=== PATIENT | female | born 1945 | race Caucasian/White ===

== ENCOUNTER 2019-04-13 13:28 | Inpatient (IN) | payer MEDICARE, MEDICAID ==
[2019-04-13] MEDS: SOD CHLORIDE 0.9% 1,000 ML IV (14:09)
[2019-04-13] MEDS: KETOROLAC 15 MG INJ IV (14:09)
[2019-04-13 14:11] LABS: ADD MAN DIFF? NO
[2019-04-13 14:14] LABS: ABNORMAL IP MESSAGE 1; BASOPHILS % 0.5 % (0.0-2.0); EOSINOPHILS # 0.1 10^3/ul (0.0-0.5); EOSINOPHILS % 1.3 % (0.0-7.0); HEMATOCRIT 29.4 % (37.0-47.0); HEMOGLOBIN 9.3 g/dl (12.0-16.0); LYMPHOCYTES # 0.9 10^3/ul (0.8-2.9); LYMPHOCYTES % 12.4 % (15.0-51.0); MEAN CORPUSCULAR HEMOGLOBIN 30.8 pg (29.0-33.0); MEAN CORPUSCULAR HGB CONC 31.6 g/dl (32.0-37.0); MEAN CORPUSCULAR VOLUME 97.4 fl (82.0-101.0); MEAN PLATELET VOLUME 10.3 fl (7.4-10.4); MONOCYTE # 0.7 10^3/ul (0.3-0.9); MONOCYTES % 9.6 % (0.0-11.0); NEUTROPHIL # 5.7 10^3/ul (1.6-7.5); NEUTROPHILS % 75.4 % (39.0-77.0); PLATELET COUNT 256 10^3/UL (140-415); RED BLOOD COUNT 3.02 10^6/ul (4.20-5.40); RED CELL DISTRIBUTION WIDTH 23.8 % (11.5-14.5)
[2019-04-13 14:14] LABS: WHITE BLOOD COUNT 7.5 10^3/ul (4.8-10.8)
[2019-04-13 14:16] LABS: POSITIVE DIFF @See below
[2019-04-13 14:32] LABS: ALANINE AMINOTRANSFERASE 29 IU/L (13-69); ALBUMIN 2.5 g/dl (3.3-4.9); ALKALINE PHOSPHATASE 393 IU/L (42-121); ANION GAP 10 (5-13); ASPARTATE AMINO TRANSFERASE 39 IU/L (15-46); BILIRUBIN,INDIRECT 0.4 mg/dl (0-1.1); BILIRUBIN,TOTAL 0.4 mg/dl (0.2-1.3); BLOOD UREA NITROGEN 36 mg/dl (7-20); CALCIUM 8.1 mg/dl (8.4-10.2); CARBON DIOXIDE 31 mmol/L (21-31); CHLORIDE 94 mmol/L (97-110); CREATININE 3.34 mg/dl (0.44-1.00); GLUCOSE 133 mg/dl (70-220); LIPASE 105 U/L (23-300); POTASSIUM 3.7 mmol/L (3.5-5.1); SODIUM 135 mmol/L (135-144)
[2019-04-13 14:33] LABS: PROTIME 19.1 Sec (11.9-14.9); PT RATIO 1.5
[2019-04-13 14:34] LABS: PARTIAL THROMBOPLASTIN TIME 50.1 Sec (23.0-35.0)
[2019-04-13 14:44] LABS: TROPONIN-I 0.031 ng/ml (0.000-0.120)
[2019-04-13] MEDS ORDERED: DOCUSATE SODIUM 100 MG CAP PO (17:30)
[2019-04-13] MEDS ORDERED: BISACODYL (EC) 5 MG TAB PO (17:30)
[2019-04-13] MEDS ORDERED: ONDANSETRON 4 MG INJ IV (17:30)
[2019-04-13] MEDS: IBUPROFEN 600 MG TAB PO (19:51)
[2019-04-13] MEDS: FAMOTIDINE 20 MG TAB PO (21:16)
[2019-04-13] MEDS: GABAPENTIN 100 MG CAP PO (21:16)
[2019-04-13] MEDS: MIDODRINE 5 MG TAB PO (21:17)
[2019-04-13 21:48] LABS: B-TYPE NATRIURETIC PEPTIDE 29600 PG/ML (0-125)
[2019-04-14] MEDS: HYDROCODONE/APAP (5/325) TAB PO ×3 (01:10→19:41)
[2019-04-14 01:55] LABS: TROPONIN-I 0.024 ng/ml (0.000-0.120)
[2019-04-14] MEDS: morphine 2 MG INJ IV (03:08)
[2019-04-14 05:14] LABS: ADD MAN DIFF? NO
[2019-04-14 05:20] LABS: ABNORMAL IP MESSAGE 1; BASOPHIL # 0.1 10^3/ul (0.0-0.1); BASOPHILS % 0.7 % (0.0-2.0); EOSINOPHILS # 0.1 10^3/ul (0.0-0.5); EOSINOPHILS % 2.1 % (0.0-7.0); HEMATOCRIT 26.5 % (37.0-47.0); HEMOGLOBIN 8.3 g/dl (12.0-16.0); LYMPHOCYTES % 14.2 % (15.0-51.0); MEAN CORPUSCULAR HEMOGLOBIN 30.3 pg (29.0-33.0); MEAN CORPUSCULAR HGB CONC 31.3 g/dl (32.0-37.0); MEAN CORPUSCULAR VOLUME 96.7 fl (82.0-101.0); MEAN PLATELET VOLUME 10.8 fl (7.4-10.4); MONOCYTE # 0.7 10^3/ul (0.3-0.9); MONOCYTES % 10.8 % (0.0-11.0); NEUTROPHIL # 4.8 10^3/ul (1.6-7.5); NEUTROPHILS % 71.3 % (39.0-77.0); PLATELET COUNT 252 10^3/UL (140-415); RED BLOOD COUNT 2.74 10^6/ul (4.20-5.40); RED CELL DISTRIBUTION WIDTH 23.7 % (11.5-14.5)
[2019-04-14 05:20] LABS: WHITE BLOOD COUNT 6.8 10^3/ul (4.8-10.8)
[2019-04-14 05:32] LABS: POSITIVE DIFF @See below
[2019-04-14 05:46] LABS: ALANINE AMINOTRANSFERASE 31 IU/L (13-69); ALBUMIN 1.8 g/dl (3.3-4.9); ALKALINE PHOSPHATASE 343 IU/L (42-121); ANION GAP 8 (5-13); ASPARTATE AMINO TRANSFERASE 33 IU/L (15-46); BILIRUBIN,INDIRECT 0.4 mg/dl (0-1.1); BILIRUBIN,TOTAL 0.4 mg/dl (0.2-1.3); BLOOD UREA NITROGEN 44 mg/dl (7-20); CALCIUM 7.8 mg/dl (8.4-10.2); CARBON DIOXIDE 29 mmol/L (21-31); CHLORIDE 100 mmol/L (97-110); CREATININE 3.95 mg/dl (0.44-1.00); GLUCOSE 111 mg/dl (70-220); POTASSIUM 4.6 mmol/L (3.5-5.1); SODIUM 137 mmol/L (135-144); TOTAL PROTEIN 3.8 g/dl (6.1-8.1)
[2019-04-14 05:56] LABS: TROPONIN-I 0.032 ng/ml (0.000-0.120)
[2019-04-14 06:03] LABS: FREE THYROXINE INDEX (Calc) 1.68 ug/ml (0.65-3.89); T3 UPTAKE 49.3 % (23.5-40.5); T4 (THYROXINE) 3.4 ug/dl (5.5-11.0)
[2019-04-14] MEDS: LEVOTHYROXINE 175 MCG TAB PO (06:41)
[2019-04-14 06:52] LABS: HEMOGLOBIN A1C 4.7 % (0-5.9)
[2019-04-14] MEDS: ASPIRIN 81 MG TAB PO (09:00)
[2019-04-14] MEDS: FAMOTIDINE 20 MG TAB PO ×2 (09:40→21:37)
[2019-04-14] MEDS: MIDODRINE 5 MG TAB PO ×3 (09:40→21:37)
[2019-04-14] MEDS: GABAPENTIN 100 MG CAP PO ×2 (09:40→21:37)
[2019-04-14 12:37] LABS: TROPONIN-I 0.021 ng/ml (0.000-0.120)
[2019-04-14] MEDS: SOD CHLORIDE 0.9% 250 ML IV* (14:40)
[2019-04-14 17:37] LABS: TROPONIN-I 0.019 ng/ml (0.000-0.120)
[2019-04-14] MEDS: ALBUMIN HUMAN 25% 100 ML IV ×2 (17:57→18:10)
[2019-04-14 18:07] LABS: HEPATITIS B SURFACE ANTIGEN NEGATIVE (NEGATIVE)
[2019-04-14 18:25] LABS: HEPATITIS B SURFACE ANTIBODY NEGATIVE (NEGATIVE)
[2019-04-14 20:10] LABS: IMMEDIATE SPIN CROSSMATCH 1 3
[2019-04-14] MEDS: HEPARIN 1000 UNITS/ML 10 ML INJ CATHETER (21:43)
[2019-04-14 22:29] LABS: ADD MAN DIFF? NO
[2019-04-14 22:31] LABS: WHITE BLOOD COUNT 5.6 10^3/ul (4.8-10.8)
[2019-04-14 22:31] LABS: ABNORMAL IP MESSAGE 1; BASOPHIL # 0.1 10^3/ul (0.0-0.1); BASOPHILS % 0.9 % (0.0-2.0); EOSINOPHILS # 0.1 10^3/ul (0.0-0.5); EOSINOPHILS % 1.3 % (0.0-7.0); HEMATOCRIT 36.3 % (37.0-47.0); HEMOGLOBIN 11.7 g/dl (12.0-16.0); LYMPHOCYTES # 0.4 10^3/ul (0.8-2.9); LYMPHOCYTES % 7.7 % (15.0-51.0); MEAN CORPUSCULAR HGB CONC 32.2 g/dl (32.0-37.0); MONOCYTE # 0.5 10^3/ul (0.3-0.9); MONOCYTES % 8.3 % (0.0-11.0); NEUTROPHIL # 4.5 10^3/ul (1.6-7.5); NEUTROPHILS % 81.1 % (39.0-77.0); PLATELET COUNT 200 10^3/UL (140-415); RED BLOOD COUNT 3.78 10^6/ul (4.20-5.40); RED CELL DISTRIBUTION WIDTH 21.5 % (11.5-14.5)
[2019-04-14 22:33] LABS: POSITIVE DIFF @See below
[2019-04-15 01:26] LABS: TROPONIN-I 0.043 ng/ml (0.000-0.120)
[2019-04-15 05:07] LABS: PLATELET COUNT 191 10^3/UL (140-415)
[2019-04-15 05:07] LABS: ADD MAN DIFF? NO
[2019-04-15 05:08] LABS: WHITE BLOOD COUNT 6.8 10^3/ul (4.8-10.8)
[2019-04-15 05:08] LABS: BASOPHIL # 0.1 10^3/ul (0.0-0.1); BASOPHILS % 0.7 % (0.0-2.0); EOSINOPHILS # 0.1 10^3/ul (0.0-0.5); EOSINOPHILS % 1.5 % (0.0-7.0); HEMATOCRIT 31.5 % (37.0-47.0); HEMOGLOBIN 10.1 g/dl (12.0-16.0); LYMPHOCYTES # 0.6 10^3/ul (0.8-2.9); LYMPHOCYTES % 8.9 % (15.0-51.0); MEAN CORPUSCULAR HEMOGLOBIN 30.8 pg (29.0-33.0); MEAN CORPUSCULAR HGB CONC 32.1 g/dl (32.0-37.0); MEAN PLATELET VOLUME 9.9 fl (7.4-10.4); MONOCYTE # 0.6 10^3/ul (0.3-0.9); MONOCYTES % 9.2 % (0.0-11.0); NEUTROPHIL # 5.3 10^3/ul (1.6-7.5); PLATELET COUNT 190 10^3/UL (140-415); RED BLOOD COUNT 3.28 10^6/ul (4.20-5.40); RED CELL DISTRIBUTION WIDTH 21.6 % (11.5-14.5)
[2019-04-15 05:50] LABS: INR 1.29; PROTIME 16.2 Sec (11.9-14.9); PT RATIO 1.3
[2019-04-15 05:51] LABS: PARTIAL THROMBOPLASTIN TIME 41.7 Sec (23.0-35.0); THROMBIN TIME 17.6 SEC (13.8-19.1)
[2019-04-15 05:58] LABS: TROPONIN-I 0.045 ng/ml (0.000-0.120)
[2019-04-15] MEDS: LEVOTHYROXINE 175 MCG TAB PO (07:00)
[2019-04-15] MEDS: MIDODRINE 5 MG TAB PO ×3 (08:20→22:08)
[2019-04-15] MEDS: HYDROCODONE/APAP (5/325) TAB PO ×3 (08:20→22:07)
[2019-04-15] MEDS: FAMOTIDINE 20 MG TAB PO ×2 (09:00→22:08)
[2019-04-15] MEDS: GABAPENTIN 100 MG CAP PO ×2 (09:00→22:08)
[2019-04-15] MEDS: ASPIRIN 81 MG TAB PO (09:00)
[2019-04-15 18:14] LABS: INR 1.37; PT RATIO 1.3
[2019-04-15 18:15] LABS: PARTIAL THROMBOPLASTIN TIME 37.7 Sec (23.0-35.0)
[2019-04-15] MEDS ORDERED: FENTAnyl 50 MCG/ML VIAL ×2 (18:31→19:55)
[2019-04-15] MEDS ORDERED: ETOMIDATE 20 MG INJ (18:31)
[2019-04-15] MEDS ORDERED: PHENYLephrine 10 MG INJ (18:31)
[2019-04-15] MEDS ORDERED: LIDOCAINE 2% (SDV) 5 ML INJ (18:41)
[2019-04-15] MEDS ORDERED: PROPOFOL 20 ML (18:51)
[2019-04-15] MEDS: NORepinephrine 8MG/250 ML (PMX 250 ML IV (19:00)
[2019-04-15] MEDS ORDERED: KETAMINE (50 MG/ML) 10 ML VIAL (19:35)
[2019-04-15] MEDS ORDERED: ONDANSETRON 4 MG INJ IV (21:00)
[2019-04-15] MEDS ORDERED: NALOXONE (0.4 MG/ML) INJ IV (21:00)
[2019-04-15] MEDS ORDERED: NACL 0.9% 3 ML SYG IV (21:00)
[2019-04-15] MEDS ORDERED: HYDROmorphONE 1 MG/5 ML IV SYRINGE IV (21:00)
[2019-04-15] MEDS ORDERED: FENTAnyl 50 MCG/ML VIAL IV (21:00)
[2019-04-15] MEDS: morphine 2 MG INJ IV (21:30)
[2019-04-15] MEDS: SOD CHLORIDE 0.9% 1,000 ML IV (22:08)
[2019-04-16] MEDS: morphine 2 MG INJ IV (00:10)
[2019-04-16 04:48] LABS: ADD MAN DIFF? NO
[2019-04-16 04:54] LABS: WHITE BLOOD COUNT 6.1 10^3/ul (4.8-10.8)
[2019-04-16 04:54] LABS: ABNORMAL IP MESSAGE 1; BASOPHIL # 0.1 10^3/ul (0.0-0.1); EOSINOPHILS # 0.1 10^3/ul (0.0-0.5); EOSINOPHILS % 1.3 % (0.0-7.0); HEMATOCRIT 35.1 % (37.0-47.0); HEMOGLOBIN 11.1 g/dl (12.0-16.0); LYMPHOCYTES # 0.8 10^3/ul (0.8-2.9); LYMPHOCYTES % 12.6 % (15.0-51.0); MEAN CORPUSCULAR HEMOGLOBIN 30.4 pg (29.0-33.0); MEAN CORPUSCULAR HGB CONC 31.6 g/dl (32.0-37.0); MEAN CORPUSCULAR VOLUME 96.2 fl (82.0-101.0); MEAN PLATELET VOLUME 10.5 fl (7.4-10.4); MONOCYTE # 0.7 10^3/ul (0.3-0.9); MONOCYTES % 10.7 % (0.0-11.0); NEUTROPHIL # 4.5 10^3/ul (1.6-7.5); NEUTROPHILS % 73.9 % (39.0-77.0); PLATELET COUNT 184 10^3/UL (140-415); RED BLOOD COUNT 3.65 10^6/ul (4.20-5.40); RED CELL DISTRIBUTION WIDTH 22.2 % (11.5-14.5)
[2019-04-16 05:09] LABS: ANION GAP 5 (5-13); BLOOD UREA NITROGEN 34 mg/dl (7-20); CALCIUM 7.9 mg/dl (8.4-10.2); CARBON DIOXIDE 28 mmol/L (21-31); CHLORIDE 107 mmol/L (97-110); CREATININE 3.04 mg/dl (0.44-1.00); GLUCOSE 111 mg/dl (70-220); PHOSPHORUS 5.2 mg/dl (2.5-4.9); POTASSIUM 4.4 mmol/L (3.5-5.1); SODIUM 140 mmol/L (135-144)
[2019-04-16 05:14] LABS: POSITIVE DIFF @See below
[2019-04-16] MEDS: LEVOTHYROXINE 125 MCG TAB PO (05:24)
[2019-04-16] MEDS: BALSAM PERU/CASTOR OIL 60 GM TUBE TOP ×3 (05:24→20:39)
[2019-04-16] MEDS: LEVOTHYROXINE 100 MCG TAB PO (05:24)
[2019-04-16] MEDS ORDERED: LEVOTHYROXINE 175 MCG TAB PO (07:00)
[2019-04-16] MEDS: MIDODRINE 5 MG TAB PO ×4 (07:59→20:39)
[2019-04-16] MEDS: GABAPENTIN 100 MG CAP PO ×2 (08:37→20:39)
[2019-04-16] MEDS: ASPIRIN 81 MG TAB PO (08:37)
[2019-04-16] MEDS: HYDROCODONE/APAP (5/325) TAB PO ×3 (08:37→22:32)
[2019-04-16] MEDS: ENOXAPARIN 30 MG/0.3 ML SYG SC (08:39)
[2019-04-16] MEDS: SOD CHLORIDE 0.9% 1,000 ML IV (09:04)
[2019-04-16] MEDS: HEPARIN 1000 UNITS/ML 10 ML INJ CATHETER (17:33)
[2019-04-16] MEDS: FAMOTIDINE 20 MG TAB PO (20:39)
[2019-04-17] MEDS: LEVOTHYROXINE 125 MCG TAB PO (05:50)
[2019-04-17] MEDS: LEVOTHYROXINE 100 MCG TAB PO (05:50)
[2019-04-17] MEDS: HYDROCODONE/APAP (5/325) TAB PO (06:02)
[2019-04-17] MEDS: GABAPENTIN 100 MG CAP PO ×2 (07:30→21:46)
[2019-04-17] MEDS: ASPIRIN 81 MG TAB PO (07:31)
[2019-04-17] MEDS: ENOXAPARIN 30 MG/0.3 ML SYG SC (07:39)
[2019-04-17] MEDS: morphine 2 MG INJ IV ×2 (07:41→12:52)
[2019-04-17] MEDS: BALSAM PERU/CASTOR OIL 60 GM TUBE TOP ×2 (07:42→21:47)
[2019-04-17] MEDS: APIXABAN 5 MG TABLET PO ×2 (12:52→21:46)
[2019-04-17] MEDS: MIDODRINE 2.5 MG TAB PO ×3 (12:52→21:46)
[2019-04-17] MEDS: FAMOTIDINE 20 MG TAB PO (21:47)
[2019-04-18] MEDS: LEVOTHYROXINE 100 MCG TAB PO (05:43)
[2019-04-18] MEDS: LEVOTHYROXINE 125 MCG TAB PO (05:43)
[2019-04-18] MEDS: APIXABAN 5 MG TABLET PO ×2 (09:25→20:42)
[2019-04-18] MEDS: ASPIRIN 81 MG TAB PO (09:25)
[2019-04-18] MEDS: GABAPENTIN 100 MG CAP PO ×2 (09:25→20:42)
[2019-04-18] MEDS: MIDODRINE 2.5 MG TAB PO ×3 (09:26→20:42)
[2019-04-18] MEDS: BALSAM PERU/CASTOR OIL 60 GM TUBE TOP ×2 (09:30→20:42)
[2019-04-18] MEDS: HYDROCODONE/APAP (5/325) TAB PO (16:15)
[2019-04-18] MEDS: FAMOTIDINE 20 MG TAB PO (20:42)
[2019-04-19] MEDS: HYDROCODONE/APAP (5/325) TAB PO ×3 (02:24→23:25)
[2019-04-19] MEDS: LEVOTHYROXINE 125 MCG TAB PO (05:36)
[2019-04-19] MEDS: LEVOTHYROXINE 100 MCG TAB PO (05:37)
[2019-04-19] MEDS: APIXABAN 5 MG TABLET PO ×2 (08:26→20:29)
[2019-04-19] MEDS: ASPIRIN 81 MG TAB PO (08:27)
[2019-04-19] MEDS: BALSAM PERU/CASTOR OIL 60 GM TUBE TOP ×2 (08:27→20:29)
[2019-04-19] MEDS: MIDODRINE 2.5 MG TAB PO ×3 (08:27→20:28)
[2019-04-19] MEDS: GABAPENTIN 100 MG CAP PO ×2 (08:27→20:28)
[2019-04-19] MEDS: ALBUMIN HUMAN 25% 100 ML IV (10:09)
[2019-04-19] MEDS: HEPARIN 1000 UNITS/ML 10 ML INJ CATHETER (13:59)
[2019-04-19] MEDS: morphine 2 MG INJ IV (20:28)
[2019-04-19] MEDS: FAMOTIDINE 20 MG TAB PO (20:28)
[2019-04-20] MEDS: morphine 2 MG INJ IV ×5 (02:47→21:16)
[2019-04-20] MEDS: LEVOTHYROXINE 125 MCG TAB PO (05:34)
[2019-04-20] MEDS: LEVOTHYROXINE 100 MCG TAB PO (05:34)
[2019-04-20 06:19] LABS: ADD MAN DIFF? NO
[2019-04-20 06:25] LABS: WHITE BLOOD COUNT 5.9 10^3/ul (4.8-10.8)
[2019-04-20 06:25] LABS: BASOPHIL # 0.1 10^3/ul (0.0-0.1); EOSINOPHILS # 0.1 10^3/ul (0.0-0.5); EOSINOPHILS % 1.2 % (0.0-7.0); HEMOGLOBIN 9.2 g/dl (12.0-16.0); LYMPHOCYTES # 1.1 10^3/ul (0.8-2.9); LYMPHOCYTES % 18.9 % (15.0-51.0); MEAN CORPUSCULAR HEMOGLOBIN 30.5 pg (29.0-33.0); MEAN CORPUSCULAR HGB CONC 30.7 g/dl (32.0-37.0); MEAN CORPUSCULAR VOLUME 99.3 fl (82.0-101.0); MEAN PLATELET VOLUME 10.8 fl (7.4-10.4); MONOCYTE # 0.8 10^3/ul (0.3-0.9); MONOCYTES % 13.7 % (0.0-11.0); NEUTROPHIL # 3.8 10^3/ul (1.6-7.5); NEUTROPHILS % 64.5 % (39.0-77.0); PLATELET COUNT 172 10^3/UL (140-415); RED BLOOD COUNT 3.02 10^6/ul (4.20-5.40); RED CELL DISTRIBUTION WIDTH 20.9 % (11.5-14.5)
[2019-04-20 06:52] LABS: ANION GAP 6 (5-13); BLOOD UREA NITROGEN 36 mg/dl (7-20); CALCIUM 7.9 mg/dl (8.4-10.2); CARBON DIOXIDE 27 mmol/L (21-31); CHLORIDE 104 mmol/L (97-110); GLUCOSE 113 mg/dl (70-220); POTASSIUM 5.5 mmol/L (3.5-5.1); SODIUM 137 mmol/L (135-144)
[2019-04-20] MEDS: MIDODRINE 2.5 MG TAB PO ×3 (08:36→21:14)
[2019-04-20] MEDS: APIXABAN 5 MG TABLET PO ×2 (08:37→21:13)
[2019-04-20] MEDS: ASPIRIN 81 MG TAB PO (08:37)
[2019-04-20] MEDS: GABAPENTIN 100 MG CAP PO ×2 (08:37→21:13)
[2019-04-20] MEDS: BALSAM PERU/CASTOR OIL 60 GM TUBE TOP ×2 (08:38→21:14)
[2019-04-20] MEDS: NA POLYST SULFON 15 GM/60 ML BTL PO (10:54)
[2019-04-20] MEDS: FAMOTIDINE 20 MG TAB PO (21:13)
[2019-04-21] MEDS: LEVOTHYROXINE 100 MCG TAB PO (05:50)
[2019-04-21] MEDS: LEVOTHYROXINE 125 MCG TAB PO (05:50)
[2019-04-21] MEDS: morphine 2 MG INJ IV ×3 (05:55→23:35)
[2019-04-21] MEDS: APIXABAN 5 MG TABLET PO ×2 (08:43→22:12)
[2019-04-21] MEDS: GABAPENTIN 100 MG CAP PO ×2 (08:43→22:13)
[2019-04-21] MEDS: MIDODRINE 2.5 MG TAB PO ×3 (08:44→22:13)
[2019-04-21] MEDS: ASPIRIN 81 MG TAB PO (08:46)
[2019-04-21] MEDS: BALSAM PERU/CASTOR OIL 60 GM TUBE TOP ×2 (08:46→21:00)
[2019-04-21 15:43] LABS: ANION GAP 7 (5-13); BLOOD UREA NITROGEN 55 mg/dl (7-20); CALCIUM 7.8 mg/dl (8.4-10.2); CARBON DIOXIDE 27 mmol/L (21-31); CHLORIDE 102 mmol/L (97-110); CREATININE 4.48 mg/dl (0.44-1.00); GLUCOSE 153 mg/dl (70-220); POTASSIUM 5.4 mmol/L (3.5-5.1); SODIUM 136 mmol/L (135-144)
[2019-04-21] MEDS: ALBUMIN HUMAN 25% 100 ML IV ×2 (16:22→17:22)
[2019-04-21] MEDS: HEPARIN 1000 UNITS/ML 10 ML INJ CATHETER (19:12)
[2019-04-21] MEDS: FAMOTIDINE 20 MG TAB PO (22:13)
[2019-04-22] MEDS: LEVOTHYROXINE 100 MCG TAB PO (05:46)
[2019-04-22] MEDS: LEVOTHYROXINE 125 MCG TAB PO (05:46)
[2019-04-22 06:12] LABS: ADD MAN DIFF? NO
[2019-04-22 06:19] LABS: BASOPHIL # 0.1 10^3/ul (0.0-0.1); BASOPHILS % 1.1 % (0.0-2.0); EOSINOPHILS # 0.1 10^3/ul (0.0-0.5); EOSINOPHILS % 1.5 % (0.0-7.0); HEMATOCRIT 25.4 % (37.0-47.0); HEMOGLOBIN 8.1 g/dl (12.0-16.0); LYMPHOCYTES % 21.6 % (15.0-51.0); MEAN CORPUSCULAR HEMOGLOBIN 31.4 pg (29.0-33.0); MEAN CORPUSCULAR HGB CONC 31.9 g/dl (32.0-37.0); MEAN CORPUSCULAR VOLUME 98.4 fl (82.0-101.0); MEAN PLATELET VOLUME 10.1 fl (7.4-10.4); MONOCYTE # 0.7 10^3/ul (0.3-0.9); MONOCYTES % 15.6 % (0.0-11.0); NEUTROPHIL # 2.8 10^3/ul (1.6-7.5); NEUTROPHILS % 59.8 % (39.0-77.0); PLATELET COUNT 158 10^3/UL (140-415); RED BLOOD COUNT 2.58 10^6/ul (4.20-5.40); RED CELL DISTRIBUTION WIDTH 19.9 % (11.5-14.5)
[2019-04-22 06:19] LABS: WHITE BLOOD COUNT 4.7 10^3/ul (4.8-10.8)
[2019-04-22 06:54] LABS: ANION GAP 6 (5-13); BLOOD UREA NITROGEN 28 mg/dl (7-20); CALCIUM 8.3 mg/dl (8.4-10.2); CARBON DIOXIDE 31 mmol/L (21-31); CHLORIDE 100 mmol/L (97-110); CREATININE 2.48 mg/dl (0.44-1.00); GLUCOSE 112 mg/dl (70-220); POTASSIUM 4.2 mmol/L (3.5-5.1); SODIUM 137 mmol/L (135-144)
[2019-04-22] MEDS: APIXABAN 5 MG TABLET PO ×2 (09:00→09:02)
[2019-04-22] MEDS: HYDROCODONE/APAP (5/325) TAB PO ×2 (09:01→19:44)
[2019-04-22] MEDS: MIDODRINE 2.5 MG TAB PO ×3 (09:02→20:12)
[2019-04-22] MEDS: GABAPENTIN 100 MG CAP PO ×2 (09:02→20:12)
[2019-04-22] MEDS: ASPIRIN 81 MG TAB PO (09:02)
[2019-04-22] MEDS: BALSAM PERU/CASTOR OIL 60 GM TUBE TOP ×2 (09:03→20:12)
[2019-04-22] MEDS: FAMOTIDINE 20 MG TAB PO (20:12)
[2019-04-23] MEDS: LEVOTHYROXINE 125 MCG TAB PO (06:58)
[2019-04-23] MEDS: LEVOTHYROXINE 100 MCG TAB PO (06:58)
[2019-04-23] MEDS: HYDROCODONE/APAP (5/325) TAB PO (07:22)
[2019-04-23] MEDS: MIDODRINE 5 MG TAB PO ×3 (09:18→20:21)
[2019-04-23] MEDS: ASPIRIN 81 MG TAB PO (09:19)
[2019-04-23] MEDS: GABAPENTIN 100 MG CAP PO ×2 (09:19→20:18)
[2019-04-23] MEDS: APIXABAN 5 MG TABLET PO ×2 (09:27→20:18)
[2019-04-23] MEDS: BALSAM PERU/CASTOR OIL 60 GM TUBE TOP ×2 (10:28→20:25)
[2019-04-23] MEDS: SOD CHLORIDE 0.9% 250 ML IV (11:00)
[2019-04-23] MEDS: ALBUMIN HUMAN 25% 100 ML IV (11:07)
[2019-04-23] MEDS: HEPARIN 1000 UNITS/ML 10 ML INJ CATHETER (13:52)
[2019-04-23] MEDS: EPOETIN ALFA-EPBX (ESRD) 10,000 UNIT/ML VIAL IV (14:22)
[2019-04-23] MEDS: ACETAMINOPHEN 325 MG TAB PO (19:20)
[2019-04-23] MEDS: PIPER-TAZO 2.25 GM (PMX) 50 ML IVPB (20:12)
[2019-04-23] MEDS: FAMOTIDINE 20 MG TAB PO (20:18)
[2019-04-24] MEDS: HYDROCODONE/APAP (5/325) TAB PO ×5 (01:07→23:16)
[2019-04-24] MEDS: PIPER-TAZO 2.25 GM (PMX) 50 ML IVPB ×4 (01:43→18:53)
[2019-04-24] MEDS: LEVOTHYROXINE 125 MCG TAB PO (06:04)
[2019-04-24] MEDS: LEVOTHYROXINE 100 MCG TAB PO (06:04)
[2019-04-24 06:12] LABS: ADD MAN DIFF? NO
[2019-04-24 06:24] LABS: WHITE BLOOD COUNT 9.1 10^3/ul (4.8-10.8)
[2019-04-24 06:24] LABS: BASOPHILS % 0.4 % (0.0-2.0); EOSINOPHILS # 0.1 10^3/ul (0.0-0.5); EOSINOPHILS % 0.7 % (0.0-7.0); HEMATOCRIT 24.9 % (37.0-47.0); HEMOGLOBIN 7.6 g/dl (12.0-16.0); LYMPHOCYTES % 11.4 % (15.0-51.0); MEAN CORPUSCULAR HEMOGLOBIN 30.5 pg (29.0-33.0); MEAN CORPUSCULAR HGB CONC 30.5 g/dl (32.0-37.0); MEAN PLATELET VOLUME 10.8 fl (7.4-10.4); MONOCYTE # 1.1 10^3/ul (0.3-0.9); MONOCYTES % 11.5 % (0.0-11.0); NEUTROPHIL # 6.9 10^3/ul (1.6-7.5); NEUTROPHILS % 75.3 % (39.0-77.0); PLATELET COUNT 188 10^3/UL (140-415); RED BLOOD COUNT 2.49 10^6/ul (4.20-5.40); RED CELL DISTRIBUTION WIDTH 19.8 % (11.5-14.5)
[2019-04-24 06:49] LABS: IRON 28 ug/dl (35-150)
[2019-04-24 06:58] LABS: % IRON SATURATION 18 % SAT (22-52)
[2019-04-24 07:01] LABS: ANION GAP 7 (5-13); BLOOD UREA NITROGEN 24 mg/dl (7-20); CALCIUM 8.7 mg/dl (8.4-10.2); CARBON DIOXIDE 27 mmol/L (21-31); CHLORIDE 104 mmol/L (97-110); CREATININE 2.43 mg/dl (0.44-1.00); GLUCOSE 110 mg/dl (70-220); PHOSPHORUS 3.2 mg/dl (2.5-4.9); POTASSIUM 3.5 mmol/L (3.5-5.1); SODIUM 138 mmol/L (135-144)
[2019-04-24 07:03] LABS: TOTAL IRON BINDING CAPACITY 152 ug/dl (241-421)
[2019-04-24] MEDS: GABAPENTIN 100 MG CAP PO ×2 (08:24→20:21)
[2019-04-24] MEDS: MIDODRINE 5 MG TAB PO ×3 (08:24→20:24)
[2019-04-24] MEDS: APIXABAN 5 MG TABLET PO ×2 (08:25→20:21)
[2019-04-24] MEDS: ASPIRIN 81 MG TAB PO (08:25)
[2019-04-24] MEDS: BALSAM PERU/CASTOR OIL 60 GM TUBE TOP ×2 (08:26→20:22)
[2019-04-24] MEDS: FAMOTIDINE 20 MG TAB PO (20:21)
[2019-04-25] MEDS: PIPER-TAZO 2.25 GM (PMX) 50 ML IVPB ×4 (01:31→18:39)
[2019-04-25] MEDS: LEVOTHYROXINE 100 MCG TAB PO (06:05)
[2019-04-25] MEDS: HYDROCODONE/APAP (5/325) TAB PO ×3 (06:05→20:48)
[2019-04-25] MEDS: LEVOTHYROXINE 125 MCG TAB PO (06:05)
[2019-04-25] MEDS: GABAPENTIN 100 MG CAP PO ×2 (08:44→20:47)
[2019-04-25] MEDS: APIXABAN 5 MG TABLET PO ×2 (08:44→20:45)
[2019-04-25] MEDS: ASPIRIN 81 MG TAB PO (08:44)
[2019-04-25] MEDS: BALSAM PERU/CASTOR OIL 60 GM TUBE TOP ×2 (08:45→20:49)
[2019-04-25] MEDS: MIDODRINE 5 MG TAB PO ×3 (08:47→20:47)
[2019-04-25] MEDS: SOD FERRIC GLUC COMPLX 125 MG in SOD CHLORIDE 0.9% 100 ML IVPB (12:59)
[2019-04-25] MEDS: FAMOTIDINE 20 MG TAB PO (20:48)
[2019-04-26] MEDS: PIPER-TAZO 2.25 GM (PMX) 50 ML IVPB ×4 (01:29→20:00)
[2019-04-26 05:54] LABS: ADD MAN DIFF? NO
[2019-04-26 06:18] LABS: ANION GAP 10 (5-13); BLOOD UREA NITROGEN 45 mg/dl (7-20); CALCIUM 8.3 mg/dl (8.4-10.2); CARBON DIOXIDE 21 mmol/L (21-31); CHLORIDE 104 mmol/L (97-110); CREATININE 4.31 mg/dl (0.44-1.00); GLUCOSE 92 mg/dl (70-220); POTASSIUM 4.1 mmol/L (3.5-5.1); SODIUM 135 mmol/L (135-144)
[2019-04-26 06:41] LABS: WHITE BLOOD COUNT 5.4 10^3/ul (4.8-10.8)
[2019-04-26 06:41] LABS: BASOPHIL # 0.1 10^3/ul (0.0-0.1); BASOPHILS % 1.9 % (0.0-2.0); EOSINOPHILS # 0.1 10^3/ul (0.0-0.5); EOSINOPHILS % 2.6 % (0.0-7.0); HEMATOCRIT 26.4 % (37.0-47.0); LYMPHOCYTES # 0.8 10^3/ul (0.8-2.9); LYMPHOCYTES % 14.7 % (15.0-51.0); MEAN CORPUSCULAR HEMOGLOBIN 30.4 pg (29.0-33.0); MEAN CORPUSCULAR HGB CONC 30.3 g/dl (32.0-37.0); MEAN CORPUSCULAR VOLUME 100.4 fl (82.0-101.0); MONOCYTE # 0.6 10^3/ul (0.3-0.9); MONOCYTES % 10.4 % (0.0-11.0); NEUTROPHIL # 3.7 10^3/ul (1.6-7.5); NEUTROPHILS % 69.3 % (39.0-77.0); PLATELET COUNT 246 10^3/UL (140-415); RED BLOOD COUNT 2.63 10^6/ul (4.20-5.40); RED CELL DISTRIBUTION WIDTH 19.4 % (11.5-14.5)
[2019-04-26] MEDS: LEVOTHYROXINE 125 MCG TAB PO (06:42)
[2019-04-26] MEDS: LEVOTHYROXINE 100 MCG TAB PO (06:43)
[2019-04-26] MEDS: APIXABAN 5 MG TABLET PO ×2 (09:12→21:05)
[2019-04-26] MEDS: MIDODRINE 5 MG TAB PO ×3 (09:12→21:05)
[2019-04-26] MEDS: GABAPENTIN 100 MG CAP PO ×2 (09:13→21:05)
[2019-04-26] MEDS: BALSAM PERU/CASTOR OIL 60 GM TUBE TOP ×2 (09:16→21:07)
[2019-04-26] MEDS: ALBUMIN HUMAN 25% 100 ML IV ×2 (10:38→11:43)
[2019-04-26] MEDS: HYDROCODONE/APAP (5/325) TAB PO ×3 (12:29→22:25)
[2019-04-26] MEDS: HEPARIN 1000 UNITS/ML 10 ML INJ CATHETER (13:28)
[2019-04-26] MEDS: SOD FERRIC GLUC COMPLX 125 MG in SOD CHLORIDE 0.9% 100 ML IVPB (13:58)
[2019-04-26] MEDS: FAMOTIDINE 20 MG TAB PO (21:05)
[2019-04-27] MEDS: morphine 2 MG INJ IV (00:56)
[2019-04-27] MEDS: PIPER-TAZO 2.25 GM (PMX) 50 ML IVPB ×4 (01:03→18:39)
[2019-04-27] MEDS: LEVOTHYROXINE 100 MCG TAB PO (06:02)
[2019-04-27] MEDS: LEVOTHYROXINE 125 MCG TAB PO (06:02)
[2019-04-27] MEDS: GABAPENTIN 100 MG CAP PO ×2 (08:09→21:02)
[2019-04-27] MEDS: MIDODRINE 5 MG TAB PO ×3 (08:10→21:03)
[2019-04-27] MEDS: BALSAM PERU/CASTOR OIL 60 GM TUBE TOP ×2 (08:10→21:03)
[2019-04-27] MEDS: APIXABAN 5 MG TABLET PO ×2 (08:10→21:02)
[2019-04-27] MEDS: HYDROCODONE/APAP (5/325) TAB PO ×2 (08:24→21:52)
[2019-04-27] MEDS: SOD FERRIC GLUC COMPLX 125 MG in SOD CHLORIDE 0.9% 100 ML IVPB (14:12)
[2019-04-27] MEDS: FAMOTIDINE 20 MG TAB PO (21:03)
[2019-04-28] MEDS: HYDROCODONE/APAP (5/325) TAB PO ×3 (01:25→21:04)
[2019-04-28] MEDS: LEVOTHYROXINE 100 MCG TAB PO (06:29)
[2019-04-28] MEDS: LEVOTHYROXINE 125 MCG TAB PO (06:30)
[2019-04-28] MEDS: morphine 2 MG INJ IV (06:35)
[2019-04-28] MEDS: GABAPENTIN 100 MG CAP PO ×2 (08:25→21:03)
[2019-04-28] MEDS: APIXABAN 5 MG TABLET PO ×2 (08:25→21:03)
[2019-04-28] MEDS: MIDODRINE 5 MG TAB PO ×3 (08:26→21:02)
[2019-04-28] MEDS: BALSAM PERU/CASTOR OIL 60 GM TUBE TOP ×2 (08:27→21:09)
[2019-04-28] MEDS: SOD FERRIC GLUC COMPLX 125 MG in SOD CHLORIDE 0.9% 100 ML IVPB (13:02)
[2019-04-28] MEDS ORDERED: SOD CHLORIDE 0.9% 500 ML (13:27)
[2019-04-28] MEDS ORDERED: LIDOCAINE 1%/EPI 30 ML INJ (13:27)
[2019-04-28] MEDS ORDERED: FENTAnyl 50 MCG/ML VIAL (13:34)
[2019-04-28] MEDS: ALBUMIN HUMAN 25% 100 ML IV ×2 (16:55→18:05)
[2019-04-28] MEDS: HEPARIN 1000 UNITS/ML 10 ML INJ CATHETER (20:20)
[2019-04-28] MEDS: FAMOTIDINE 20 MG TAB PO (21:03)
[2019-04-28] MEDS: EPOETIN ALFA-EPBX (ESRD) 10,000 UNIT/ML VIAL SC (21:06)
[2019-04-29] MEDS: HYDROCODONE/APAP (5/325) TAB PO ×5 (00:06→23:17)
[2019-04-29] MEDS: LEVOTHYROXINE 100 MCG TAB PO (06:39)
[2019-04-29] MEDS: LEVOTHYROXINE 125 MCG TAB PO (06:39)
[2019-04-29] MEDS: GABAPENTIN 100 MG CAP PO ×2 (08:39→20:41)
[2019-04-29] MEDS: MIDODRINE 5 MG TAB PO ×3 (08:39→20:41)
[2019-04-29] MEDS: APIXABAN 5 MG TABLET PO ×2 (08:39→20:42)
[2019-04-29] MEDS: BALSAM PERU/CASTOR OIL 60 GM TUBE TOP ×2 (08:40→20:45)
[2019-04-29] MEDS: SOD FERRIC GLUC COMPLX 125 MG in SOD CHLORIDE 0.9% 100 ML IVPB (13:43)
[2019-04-29] MEDS: FAMOTIDINE 20 MG TAB PO (20:42)
[2019-04-30] MEDS: LEVOTHYROXINE 125 MCG TAB PO (05:50)
[2019-04-30] MEDS: LEVOTHYROXINE 100 MCG TAB PO (05:50)
[2019-04-30] MEDS: APIXABAN 5 MG TABLET PO ×2 (09:07→21:01)
[2019-04-30] MEDS: GABAPENTIN 100 MG CAP PO ×2 (09:07→21:01)
[2019-04-30] MEDS: HYDROCODONE/APAP (5/325) TAB PO ×3 (09:07→21:01)
[2019-04-30] MEDS: MIDODRINE 5 MG TAB PO ×3 (09:08→21:01)
[2019-04-30] MEDS: BALSAM PERU/CASTOR OIL 60 GM TUBE TOP ×2 (09:08→21:05)
[2019-04-30] MEDS: ALBUMIN HUMAN 25% 100 ML IV (12:00)
[2019-04-30] MEDS: HEPARIN 1000 UNITS/ML 10 ML INJ CATHETER (14:57)
[2019-04-30] MEDS: EPOETIN ALFA-EPBX (ESRD) 10,000 UNIT/ML VIAL SC (17:56)
[2019-04-30] MEDS: FAMOTIDINE 20 MG TAB PO (21:01)
[2019-05-01] MEDS: HYDROCODONE/APAP (5/325) TAB PO ×2 (00:24→06:09)
[2019-05-01] MEDS: LEVOTHYROXINE 125 MCG TAB PO (06:08)
[2019-05-01] MEDS: LEVOTHYROXINE 100 MCG TAB PO (06:08)
[2019-05-01 06:49] LABS: WHITE BLOOD COUNT 6.1 10^3/ul (4.8-10.8)
[2019-05-01 06:49] LABS: ABNORMAL IP MESSAGE 1; ADD MAN DIFF? NO; BASOPHIL # 0.1 10^3/ul (0.0-0.1); BASOPHILS % 1.3 % (0.0-2.0); EOSINOPHILS # 0.1 10^3/ul (0.0-0.5); EOSINOPHILS % 1.8 % (0.0-7.0); HEMATOCRIT 24.6 % (37.0-47.0); HEMOGLOBIN 7.2 g/dl (12.0-16.0); LYMPHOCYTES # 1.7 10^3/ul (0.8-2.9); LYMPHOCYTES % 28.6 % (15.0-51.0); MEAN CORPUSCULAR HEMOGLOBIN 30.9 pg (29.0-33.0); MEAN CORPUSCULAR HGB CONC 29.3 g/dl (32.0-37.0); MEAN CORPUSCULAR VOLUME 105.6 fl (82.0-101.0); MEAN PLATELET VOLUME 10.1 fl (7.4-10.4); MONOCYTE # 0.9 10^3/ul (0.3-0.9); MONOCYTES % 14.1 % (0.0-11.0); NEUTROPHIL # 3.2 10^3/ul (1.6-7.5); NEUTROPHILS % 52.7 % (39.0-77.0); NUCLEATED RED BLOOD CELLS% 0.3 /100WBC (0.0-0.0); PLATELET COUNT 203 10^3/UL (140-415); RED BLOOD COUNT 2.33 10^6/ul (4.20-5.40)
[2019-05-01 07:01] LABS: POSITIVE DIFF @See below
[2019-05-01 07:12] LABS: ANION GAP 6 (5-13); BLOOD UREA NITROGEN 12 mg/dl (7-20); CALCIUM 8.5 mg/dl (8.4-10.2); CARBON DIOXIDE 30 mmol/L (21-31); CHLORIDE 102 mmol/L (97-110); GLUCOSE 88 mg/dl (70-220); POTASSIUM 3.7 mmol/L (3.5-5.1); SODIUM 138 mmol/L (135-144)
[2019-05-01] MEDS: MIDODRINE 5 MG TAB PO ×3 (08:57→20:17)
[2019-05-01] MEDS: APIXABAN 5 MG TABLET PO ×2 (08:57→20:14)
[2019-05-01] MEDS: GABAPENTIN 100 MG CAP PO ×2 (08:57→20:14)
[2019-05-01] MEDS: BALSAM PERU/CASTOR OIL 60 GM TUBE TOP ×2 (08:58→20:18)
[2019-05-01] MEDS: ACETAMINOPHEN 325 MG TAB PO ×2 (10:42→17:42)
[2019-05-01] MEDS: FAMOTIDINE 20 MG TAB PO (20:14)
[2019-05-02] MEDS: LEVOTHYROXINE 100 MCG TAB PO (05:11)
[2019-05-02] MEDS: LEVOTHYROXINE 125 MCG TAB PO (05:11)
[2019-05-02] MEDS: HYDROCODONE/APAP (5/325) TAB PO ×2 (05:14→17:34)
[2019-05-02 06:47] LABS: ADD MAN DIFF? NO
[2019-05-02 06:54] LABS: WHITE BLOOD COUNT 8.7 10^3/ul (4.8-10.8)
[2019-05-02 06:54] LABS: ABNORMAL IP MESSAGE 1; BASOPHIL # 0.1 10^3/ul (0.0-0.1); EOSINOPHILS # 0.1 10^3/ul (0.0-0.5); EOSINOPHILS % 0.9 % (0.0-7.0); HEMATOCRIT 24.2 % (37.0-47.0); HEMOGLOBIN 7.3 g/dl (12.0-16.0); LYMPHOCYTES # 1.9 10^3/ul (0.8-2.9); LYMPHOCYTES % 21.3 % (15.0-51.0); MEAN CORPUSCULAR HEMOGLOBIN 32.2 pg (29.0-33.0); MEAN CORPUSCULAR HGB CONC 30.2 g/dl (32.0-37.0); MEAN CORPUSCULAR VOLUME 106.6 fl (82.0-101.0); MEAN PLATELET VOLUME 10.1 fl (7.4-10.4); MONOCYTE # 1.1 10^3/ul (0.3-0.9); MONOCYTES % 12.5 % (0.0-11.0); NEUTROPHIL # 5.6 10^3/ul (1.6-7.5); NEUTROPHILS % 63.6 % (39.0-77.0); PLATELET COUNT 189 10^3/UL (140-415); POSITIVE DIFF @See below; RED BLOOD COUNT 2.27 10^6/ul (4.20-5.40); RED CELL DISTRIBUTION WIDTH 23.2 % (11.5-14.5)
[2019-05-02 07:08] LABS: ANION GAP 9 (5-13); BLOOD UREA NITROGEN 23 mg/dl (7-20); CALCIUM 8.2 mg/dl (8.4-10.2); CARBON DIOXIDE 26 mmol/L (21-31); CHLORIDE 101 mmol/L (97-110); CREATININE 3.57 mg/dl (0.44-1.00); GLUCOSE 163 mg/dl (70-220); POTASSIUM 3.8 mmol/L (3.5-5.1); SODIUM 136 mmol/L (135-144)
[2019-05-02] MEDS: MIDODRINE 5 MG TAB PO ×3 (09:06→20:56)
[2019-05-02] MEDS: APIXABAN 5 MG TABLET PO ×2 (09:06→20:56)
[2019-05-02] MEDS: BALSAM PERU/CASTOR OIL 60 GM TUBE TOP ×2 (09:07→20:57)
[2019-05-02] MEDS: GABAPENTIN 100 MG CAP PO ×2 (09:14→20:56)
[2019-05-02] MEDS: FAMOTIDINE 20 MG TAB PO (20:56)
[2019-05-03] MEDS: ACETAMINOPHEN 325 MG TAB PO ×2 (00:51→17:43)
[2019-05-03] MEDS: LEVOTHYROXINE 100 MCG TAB PO (06:03)
[2019-05-03] MEDS: LEVOTHYROXINE 125 MCG TAB PO (06:03)
[2019-05-03] MEDS: GABAPENTIN 100 MG CAP PO (08:29)
[2019-05-03] MEDS: APIXABAN 5 MG TABLET PO (08:29)
[2019-05-03] MEDS: MIDODRINE 5 MG TAB PO ×2 (08:29→13:25)
[2019-05-03] MEDS: BALSAM PERU/CASTOR OIL 60 GM TUBE TOP (08:30)
[2019-05-03] MEDS: IBUPROFEN 400 MG TAB PO (08:37)
[2019-05-03] MEDS: ALBUMIN HUMAN 25% 100 ML IV (11:31)
[2019-05-03] MEDS: HEPARIN 1000 UNITS/ML 10 ML INJ CATHETER (12:38)
[2019-05-03] MEDS: HYDROCODONE/APAP (5/325) TAB PO (13:27)
[2019-05-03] MEDS: EPOETIN ALFA-EPBX (ESRD) 10,000 UNIT/ML VIAL SC (17:45)
== END 2019-05-03 17:55 | DRG 562 ==
LOC: 2NE 04-23 02:13 → ICU 04-15 20:38 → E/R 13:28 → TEL 04-16 21:29 → MS1 14:03
PROVIDERS: Internal Medicine
PROC: 0QSHXZZ Reposition Left Tibia, External Approach (ICD-10-PCS; principal; 2019-04-15 15:00)
PROC: 0QSGXZZ Reposition Right Tibia, External Approach (ICD-10-PCS; 2019-04-15 15:00)
PROC: 5A1D70Z Performance of Urinary Filtration, Intermittent, Less than 6 Hours Per Day (ICD-10-PCS; 2019-04-15 18:43)
PROC: 30233N1 Transfusion of Nonautologous Red Blood Cells into Peripheral Vein, Percutaneous Approach (ICD-10-PCS; 2019-04-15 18:43)
DX: S82.142A Displaced bicondylar fracture of left tibia, initial encounter for closed fracture (principal); R53.2 Functional quadriplegia; N18.6 End stage renal disease; S82.141A Displaced bicondylar fracture of right tibia, initial encounter for closed fracture; J90 Pleural effusion, not elsewhere classified; R18.8 Other ascites; I95.9 Hypotension, unspecified; I48.91 Unspecified atrial fibrillation; E11.8 Type 2 diabetes mellitus with unspecified complications; I50.9 Heart failure, unspecified; I27.20 Pulmonary hypertension, unspecified; I07.1 Rheumatic tricuspid insufficiency; K74.60 Unspecified cirrhosis of liver; I34.0 Nonrheumatic mitral (valve) insufficiency; D64.9 Anemia, unspecified; E03.9 Hypothyroidism, unspecified; M19.90 Unspecified osteoarthritis, unspecified site; K21.9 Gastro-esophageal reflux disease without esophagitis; Z99.2 Dependence on renal dialysis; I99.8 Other disorder of circulatory system; D50.9 Iron deficiency anemia, unspecified; W01.0XXA Fall on same level from slipping, tripping and stumbling without subsequent striking against object, initial encounter
CPT/HCPCS: 36415; 36430; 71045; 73560; 73562; 76705; 80048; 80053; 83036; 83540; 83690; 83735; 83880; 84100; 84436; 84443; 84479; 84484; 85025; 85049; 85610; 85670; 85730; 86706; 86850; 86900; 86901; 86920; 87040-91; 87045; 87081; 87340; 90935; 93005; 93306; 99285-25